=== PATIENT | female | born 1975 | race Caucasian/White ===

== ENCOUNTER 2016-09-28 05:39 | Day surgery (SDC) | payer BC, SELFPAY ==
[2016-09-26 13:55] LABS: HEMATOCRIT 39.7 % (36.0-48.0); HEMOGLOBIN 13.2 g/dL (12.0-16.0)
[2016-09-26 14:42] LABS: ASCORBIC ACID (UR NOT ORDER) 20 (NEG); BILIRUBIN, URINE NEGATIVE (NEG); KETONE, URINE NEGATIVE (NEG); LEUKOCYTE ESTERASE(NOT OR NEG (NEG); WBC (NOT ORDERED) (RFLEX) < 1 (0-5)
--- NOTE | ~2016-09-28 | OP ---
Record Of Operation [facility] [address] [place]. [address] NAME: MADHURI PNAG : 73 STATUS : [facility]#: [id number] AGE: 41 ADM/REG DATE : 09/28/16 MR#: [id number] REPORT SERV DATE: 09/28/16 DICTATED BY: ORQUIDEA MILLS DATE: 09/28/16 REPORT STATUS : Draft TRANSCRIBED BY: MODL DATE: 09/28/16 DATE OF PROCEDURE: 09/28/2016 PREOPERATIVE DIAGNOSIS: Left knee patellofemoral chondromalacia with pain. POSTOPERATIVE DIAGNOSIS: Left knee patellofemoral chondromalacia with pain, with lateral tibial plateau chondromalacia, grade 2. PROCEDURE PERFORMED: Left knee arthroscopy with thermal/debriding chondroplasty to the patellofemoral joint and lateral tibial plateau. SURGEON: Orquidea Mills M.D. ELEMENTARY SUBSTITUTE TEACHER: Nancy Gonzalez. ANESTHESIA: General. PROCEDURE IN DETAIL: The patient was clearly identified, and after obtaining informed consent, she was brought to the operating room at [facility], where she was induced under general anesthesia, as her left lower extremity was prepped and draped in usual manner, and this concluded, after an appropriate time-out procedure was performed. KAELYN exsanguination was performed. Tourniquet was elevated to 350 mmHg and successfully tested. At which point, 30 mL of saline were instilled within the joint and anteromedial and anterolateral portals were performed. Arthroscopy begins revealing minimal synovitis. The patellofemoral tracking was excellent despite chondromalacia grade 2 to 3 at places, both at the patella and femoral trochlear region. The medial compartment reveals no chondromalacia and no meniscal pathology. The lateral compartment reveals no meniscal pathology or femoral pathology over the lateral tibial plateau. Does have some chondromalacia grade 2-2, and it is felt that the wearable thermal chondroplasty device would be helpful for cartilage, which was then very gently utilized to treat the lateral tibial plateau to good stable appearing tissues. Subsequently, the patellofemoral joint was addressed, femoral trochlea and patella themselves are treated with a thermal device to recontour the tissues rather nicely. There was no evidence of any fraying when we were complete. There was no evidence of any cartilaginous breakthrough to any area of subchondral bone and this concluded. The joint was copiously irrigated and then drained. The portals were closed. Ropivacaine and morphine were instilled in the joint. The patient's leg was then cleansed and dressed. She was allowed to awaken and was transferred to the recovery room in stable condition having tolerated the procedure well. ESTIMATED BLOOD LOSS: 5 mL. FLUID: 700 mL. TOURNIQUET TIME: Approximately 35 minutes. PATHOLOGY: Sent specimen. Record Of Operation [address] [address] NAME: MADHURI PANG : 73 STATUS : [facility] PAT#: [id number] AGE: 41 ADM/REG DATE : 09/28/16 MR#: [id number] REPORT SERV DATE: 09/28/16 DICTATED BY: ORQUIDEA MILLS DATE: 09/28/16 REPORT STATUS : Draft TRANSCRIBED BY: DEEPA DATE: 09/28/16 MICROBIOLOGY: None. COMPLICATIONS: None. SPONGE AND NEEDLE COUNTS: Reportedly correct. ANTIBIOTICS: Administered appropriately preoperatively and ordered to be discontinued at the conclusion of the case. WILBERT/DEEPA Orquidea Mills M.D. / [id number] CC: Matt Kelley M.D.
[~2016-09-28 05:39] MED LIST: ALLEGRA180 PO; PROAIR HFA INH; THYROID COMPLEX PO; TURMERIC PO; [UNRECOGNIZED DRUG - OTHER] PO
== END 2016-09-28 15:00 | disposition home or self-care (01) ==
LOC: SDC 05:39
PROVIDERS: Orthopaedic Surgery
PROC: 0SBD4ZZ Excision of Left Knee Joint, Percutaneous Endoscopic Approach (ICD-10-PCS; principal; 2016-09-28 06:45)
DX: M22.42 Chondromalacia patellae, left knee (principal); J45.909 Unspecified asthma, uncomplicated; K21.9 Gastro-esophageal reflux disease without esophagitis; E03.9 Hypothyroidism, unspecified; Z91.040 Latex allergy status
CPT/HCPCS: 81001; 84703; 85014; 85018; 88304; J0690; J1885; J2250; J2274; J2405; J2795; J3010